=== PATIENT | male | born 1965 | race Caucasian/White ===

== ENCOUNTER 2017-05-02 15:22 | Emergency (ER) | payer OTHER ==
--- NOTE | 2017-05-02 15:44 | UC ---
Ear Complaint HPI - HPI Summary HPI Summary: 51 yo WM presents with left ear pressure and feeling like there is water in his ear for the last 3 days. Has not taken anything OTC for this. Denies dizziness, headache, fever, chills, sinus symptoms, or sore throat. - History of Current Complaint Stated Complaint: EAR COMPLAINT Hx Obtained From: Patient Onset/Duration: Gradual Onset Severity Currently: None - Allergies/Home Medications Allergies/Adverse Reactions: Allergies Allergy/AdvReac Type Severity Reaction Status Date / Time No Known Allergies Allergy Verified 05/02/17 15:47 Home Medications: Home Medications Albuterol HFA INHALER* [Ventolin HFA Inhaler*] 1 - 2 puff INH Q4H PRN 05/02/17 [ History Confirmed 05/02/17] Fluticasone/Vilanterol [Breo Ellipta 200-25 Mcg INH] 1 each IH DAILY 05/02/17 [ History Confirmed 05/02/17] Montelukast Sodium TAB* [Singulair TAB*] 10 mg PO DAILY 05/02/17 [History Confirmed 05/02/17] PMH/Surg Hx/FS Hx/Imm Hx Previously Healthy: Yes Respiratory History: Asthma - Family History Known Family History: Positive: Respiratory Disease - Social History Occupation: Employed Full-time Lives: With Family Alcohol Use: Occasionally Substance Use Type: None Smoking Status (MU): Never Smoked Tobacco Review of Systems Constitutional: Negative Skin: Negative Eyes: Negative ENT: Ear Ache Respiratory: Negative Cardiovascular: Negative Neurological: Negative Psychological: Negative All Other Systems Reviewed And Are Negative: Yes Physical Exam Triage Information Reviewed: Yes Appearance: Well-Appearing, No Pain Distress, Well-Nourished Eyes: Positive: Conjunctiva Clear. Negative: Conjunctiva Inflamed, Discharge ENT: Positive: Hearing grossly normal, Pharynx normal, TMs normal, Uvula midline. Negative: Pharyngeal erythema, Nasal congestion, Nasal drainage, TM bulging, TM dull, TM red, Tonsillar swelling, Tonsillar exudate, Hoarse voice, Sinus tenderness Neck: Positive: Supple, Nontender, No Lymphadenopathy Respiratory: Positive: Lungs clear, Normal breath sounds, No respiratory distress, No accessory muscle use Cardiovascular: Positive: RRR, No Murmur, Pulses Normal Neurological: Positive: Alert Psychological: Positive: Age Appropriate Behavior Skin: Negative: rashes Ear Complaint Course/Dx - Course Course Of Treatment: Suspect left eustachian tube dysfunction - advised him to try OTC claritin and flonase for relief. If no change or worsening symptoms, to f/u with PCP - Differential Dx/Diagnosis Provider Diagnoses: Left eustachian tube dysfunction Discharge - Discharge Plan Condition: Stable Disposition: HOME Referrals: No Primary Care Phys,NOPCP [Primary Care Provider] - Additional Instructions: If you develop a fever, shortness of breath, chest pain, new or worsening symptoms - please call your PCP or go to the ED. Your blood pressure was high at todays visit. Please see your primary provider within 4 weeks for recheck and re-evaluation. 1) Try Claritin and Flonase for your ear symptoms. If you have no relief, please follow up with your PCP.
[2017-05-02 15:47] VITALS: BP 149/82
== END 2017-05-02 16:10 | disposition home or self-care (01) ==
LOC: UCEAST 15:22
DX: H69.92 Unspecified Eustachian tube disorder, left ear (principal); J45.909 Unspecified asthma, uncomplicated
CPT/HCPCS: 99201; G0463